=== PATIENT | female | born 1930 | race Two or more races ===

== ENCOUNTER → 2017-04-11 | Emergency (ER) | payer OTHER ==
[~2017-04-11] VITALS: Ht 152.4 cm; Wt 54.4 kg
[~2017-04-11] MED LIST: BENTYL10 MG/1 ML; CITALOPRAM HBR20 MG; CLARITHROMYCIN500 MG; LEVOXYL100 MCG; LYRICA100 MG; MECLIZINE HCL25 MG; NEXIUM10 MG; SINGULAIR 5MG5 MG
== END | disposition home or self-care (01) ==
LOC: ER 10:33
DX: S00.83XS Contusion of other part of head, sequela (principal); S30.0XXA Contusion of lower back and pelvis, initial encounter; S10.93XA Contusion of unspecified part of neck, initial encounter; M41.87 Other forms of scoliosis, lumbosacral region; W18.39XA Other fall on same level, initial encounter; Y93.89 Activity, other specified; Y92.018 Other place in single-family (private) house as the place of occurrence of the external cause; Y99.8 Other external cause status

== ENCOUNTER 2017-05-24 23:21 | Emergency (ER) | payer OTHER ==
[~2017-05-24] VITALS: Ht 149.9 cm; Wt 56.7 kg
[2017-05-25] MEDS ORDERED: CELEBREX100 MG PO (04:57)
== END 2017-05-25 04:57 | disposition home or self-care (01) ==
LOC: ER 23:21
DX: S00.03XA Contusion of scalp, initial encounter (principal); Z96.643 Presence of artificial hip joint, bilateral; W18.2XXA Fall in (into) shower or empty bathtub, initial encounter; Y93.E1 Activity, personal bathing and showering; Y92.091 Bathroom in other non-institutional residence as the place of occurrence of the external cause; Y99.8 Other external cause status

== ENCOUNTER 2018-01-04 12:36 | Outpatient (CLI) | payer OTHER ==
[~2018-01-04 12:36] MED LIST changes: +CELEBREX100 MG PO
== END 2018-01-04 12:46 | disposition home or self-care (01) ==
LOC: RAD 12:36
DX: M54.5 Low back pain (principal); S79.919A Unspecified injury of unspecified hip, initial encounter; M25.551 Pain in right hip; M25.552 Pain in left hip

== ENCOUNTER → 2018-03-27 | Emergency (ER) | payer OTHER ==
[~2018-03-27] VITALS: Ht 149.9 cm; Wt 59.0 kg
[~2018-03-27] MED LIST changes: +CITALOPRAM HBR40 MG PO; +NEXIUM 24HR20 MG PO; +XANAX0.25 MG PO
== END | disposition home or self-care (01) ==
LOC: ER 13:13
DX: K58.9 Irritable bowel syndrome, unspecified (principal)